=== PATIENT | male | born 1950 | race Caucasian/White ===

== ENCOUNTER 2022-12-02 17:27 | Emergency (ER) | payer MEDICARE, SELFPAY ==
--- NOTE | ~2022-12-02 | CT_ITS ---
Non-contrast Head CT History: Head injury Technique: Axial non-contrast imaging of the brain was performed. Dose reduction technique was used on this scan by utilizing automated exposure control and iterative reconstruction technique. The dose -length product (DLP) was 605.33 mGy-cm. Findings: There is no evidence of intracranial hemorrhage, mass lesion, or acute infarct. Brain par enchyma appears normal. The ventricles and subarachnoid spaces are normal in size. The calvarium ap pears normal. The visualized paranasal sinuses and mastoid air cells are clear. Impression: No significant abnormality seen. Reviewed, dictated and finalized at location . Impression: No significant abnormality seen.
[2022-12-02 17:29] VITALS: BP 166/95; PULSE 81; RESP 14; TEMP 36.1; O2SAT 98
[2022-12-02] MEDS: TETANUS,DIPHTHERIA,AC PERTUSSIS ADULT (0.5 ML) BOOSTRIX IM (17:51)
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
[2022-12-02 19:06] VITALS: BP 140/87; PULSE 72; RESP 17; O2SAT 99
== END 2022-12-02 19:07 | disposition home or self-care (01) ==
PROVIDERS: Emergency Provider Emergency Medicine
DX: S01.03XA Puncture wound without foreign body of scalp, initial encounter (principal); Z23 Encounter for immunization; M10.9 Gout, unspecified; Z85.828 Personal history of other malignant neoplasm of skin; Z96.659 Presence of unspecified artificial knee joint; W20.8XXA Other cause of strike by thrown, projected or falling object, initial encounter; Y93.H2 Activity, gardening and landscaping
CPT/HCPCS: 70450; 90471; 90715; 99284

== ENCOUNTER 2023-10-01 08:49 | Outpatient (CLI) | payer MEDICARE, SELFPAY ==
--- NOTE | ~2023-10-01 | NM_ITS ---
EXAMINATION: NM bone scan whole body DATE: 10/01/2023 13:18 INDICATION: Prostate cancer TECHNIQUE: 24.1 mCi Tc-99m HDP was administered intravenously. Delayed whole-body scintigrams were o btained. COMPARISON: CT abdomen and pelvis dated 10/01/2023 FINDINGS: Typical pattern of mild likely degenerative joint centered uptake at multiple joints at the bilateral hands as well as at the bilateral elbows and acromioclavicular joints. Typical pattern of mild uptak e at the margins of photopenic defects associated with bilateral total knee arthroplasties. No abnorm ally increased periprosthetic activity to suggest loosening or infection. There is increased likely d egenerative disc and facet joint centered uptake at multiple locations in the lumbar, thoracic and ce rvical spine. No other atypical foci of abnormal uptake in the pelvis, ribs or skull to suggest metas tatic disease. IMPRESSION: 1. Typical pattern of scattered degenerative joint and disc centered uptake. No other atypical foci o f bone uptake to suggest metastatic disease. Reviewed, dictated and finalized at location A. IMPRESSION: 1. Typical pattern of scattered degenerative joint and disc centered uptake. No other atypical foci of bone uptake to suggest metastatic disease.
--- NOTE | ~2023-10-01 | CT_ITS ---
CT of the Abdomen and Pelvis: Indication: Prostate cancer Technique: 2.5 mm axial scans were obtained through the abdomen and pelvis following intravenous adm inistration of 100 cc of Omnipaque 350. Dose reduction technique was used on this scan by utilizing a utomated exposure control and iterative reconstruction technique. The dose-length product (DLP) was 1 148.63 mGy-cm. Findings: Scans through the lung bases are unremarkable. The liver, spleen, pancreas, adrenals and kidneys are within normal limits. Multiple calcified gallst ones are present. No evidence of aortic aneurysm. No lymphadenopathy. No bowel obstruction or bowel wall thickening. There is no evidence to suggest acute appendicitis. Images through the pelvis were performed. Urinary bladder unremarkable. Prostate gland mildly enlarge d. No ascites. There is degenerative change in the lumbar spine. No osteoblastic lesion identified. Impression: No evidence for metastatic disease. Cholelithiasis. Reviewed, dictated and finalized at [facility]. Impression: No evidence for metastatic disease. Cholelithiasis.
[2023-10-01 09:36] LABS: Estimated Glomerular Filt Rate > 60
== END 2023-10-01 08:50 | disposition home or self-care (01) ==
PROVIDERS: Visit Provider Urology
DX: C61 Malignant neoplasm of prostate (principal); K80.20 Calculus of gallbladder without cholecystitis without obstruction
CPT/HCPCS: 74177; 78306; A9503; Q9967

== ENCOUNTER 2023-11-24 13:18 | Outpatient (CLI) | payer MEDICARE, SELFPAY ==
--- NOTE | ~2023-11-24 | PE_ITS ---
EXAMINATION: PET_PETPSMAST_PT DATE: 11/24/2023 15:38 INDICATION: Prostate cancer TECHNIQUE: 4.924 mCi of Locametz Ga-68(56-[id number]-mzmhrefyrn) was administered i.v. Low dose computed ely ography (CT) images were acquired from the base of the brain to the base of the brain to the proximal thighs for attenuation correction and anatomic localization. Positron emission tomography (PET) imag es were acquired in the same distribution beginning 86 minutes after injection. Images including fuse d PET/CT images were reconstructed in axial, coronal, and sagittal planes. Automated exposure control technique was employed. The dose-length product was 1262.62mGy-cm. COMPARISON: CT abdomen and pelvis and bone scan, both dated 10/01/2023 FINDINGS: Head/neck: Typical pattern of symmetric physiologic increased activity in the lacrimal, parotid and submandibula r glands as well as along the mucosa of the nasal and oral cavities, pharynx and hypopharynx. No path ologically enlarged cervical lymphadenopathy or suspicious foci of increased uptake in the visualized head or neck. Chest: There is dependent atelectasis in bilateral lower lobes. No suspicious pulmonary nodules, pneumonia o r pleural effusion. Heart size is normal. No pericardial effusion. Thoracic aorta is normal in calibe r. No pathologically enlarged or PSMA avid thoracic lymphadenopathy. Abdomen/pelvis/proximal thighs: Physiologic renal accumulation and excretion of activity in the kidneys, bladder and along portions o f ureters. There is diffuse mild uptake throughout the posterior aspect of the mildly enlarged prosta te with maximal SUV of 7.7. There are couple new metallic densities in the prostate likely related to interval prostate biopsy. Normal degree and slightly heterogenous pattern of increased uptake throug hout the liver and spleen without radiologic correlate or dominant PSMA avid lesion. There are few ca lcified gallstones within the otherwise normal gallbladder. The pancreas and bilateral adrenal glands are normal. Moderate uptake scattered throughout the bowels with typical duodenal and proximal jejun al predominance and without radiologic correlate, also likely physiologic. No other abnormal foci of increased uptake or pathologically enlarged lymphadenopathy in the abdomen, pelvis or proximal thighs . Musculoskeletal: Moderate thoracic and severe cervical and lumbar spondylosis. No suspicious lytic, blastic or abnorma lly PSMA avid bone lesions to suggest osseous metastatic disease. IMPRESSION: 1. Mild diffuse uptake in the posterior prostate consistent with reported primary prostate cancer. No evident metastatic disease. Reviewed, dictated and finalized at location B. IMPRESSION: 1. Mild diffuse uptake in the posterior prostate consistent with reported prima ry prostate cancer. No evident metastatic disease.
== END 2023-11-24 13:19 | disposition home or self-care (01) ==
LOC: ANHIMG 13:24
PROVIDERS: Visit Provider Radiology Radiation Oncology
DX: C61 Malignant neoplasm of prostate (principal)
CPT/HCPCS: 78815; A9596

== ENCOUNTER 2023-12-06 07:29 | Outpatient (CLI) | payer MEDICARE, SELFPAY ==
--- NOTE | ~2023-12-06 | MR_ITS ---
EXAMINATION: MR pelvis wo/w con DATE: 12/06/2023 09:15 INDICATION: Malignant neoplasm of prostate. TECHNIQUE: Magnetic resonance imaging (MRI) of the pelvis was performed without and with 20 mL MultiH ance intravenous contrast. COMPARISON: PET/CT 11/24/2023 FINDINGS: The prostate is mildly enlarged. There are no dilated loops of bowel. There are no pathologically enl arged lymph nodes. There is no free intraperitoneal fluid. There is no osseous metastatic disease. IMPRESSION: 1. Mildly enlarged prostate. No evidence of metastatic disease. Reviewed, dictated and finalized at location E.
== END 2023-12-06 07:30 | disposition home or self-care (01) ==
LOC: ANHIMG 07:36
PROVIDERS: Visit Provider Radiology Radiation Oncology
DX: N40.0 Benign prostatic hyperplasia without lower urinary tract symptoms (principal)
CPT/HCPCS: 72197; A9577

== ENCOUNTER 2025-03-27 02:13 | Day surgery (SDC) | payer MEDICARE, SELFPAY ==
[2025-03-14 15:32] VITALS: BMI 31.3
--- OUTSIDE RECORDS SUMMARY | 2025-03-27 02:16 | XMS_ITS | Clinical Summary ---
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 Gender Identity Not on file Sexual Orientation Not on file Plan of Treatment Health Maintenance Due Date Last Done Comments Hepatitis C Virus (HCV) Screening 1950 TdaP Immunization 1950 Cologuard 1997 Colonoscopy 1997 Colorectal Cancer Screening 1997 Immunochemical Fecal Occult Blood 1997 Pneumococcal Immunization (5 0+ years) (1 of 1 - PCV) 2002 Zoster Immunization (1 of 2) 2002 Influenza Immunization (#1) 2025 SARS-COV-2 Immunization ( season) 2025 Respiratory Syncytial Virus (RSV) Immunization (Adult) (1 - 1-dose 75+ series) 12/06/2027 Hepatitis B Immunization Aged Out No longer eligible based on patient's age to complete this topic Human Papillomavirus (HPV) Immunization Aged Out No longer eligible b ased on patient's age to complete this topic Meningococcal Immunization (ACWY) Aged Out No longer eligible based on patient's age to complete this topic Rotavirus Immunization Aged Out No lo nger eligible based on patient's age to complete this topic
--- OUTSIDE RECORDS SUMMARY | 2025-03-27 02:16 | XMS_ITS | Clinical Summary ---
Author Organization [facility] Address [address] [place] [address] Care Team Providers Care Publication Specialist Name Role Phone Valentina Everett MD Primary Care Provider Allergies No known active allergies Medications aspirin (ECOTRIN EC) 81 mg Tablet, Delayed Release (E.C.) Take 81 mg by mouth daily. Active Cholecalciferol , Vitamin D3, 50 mcg (2,000 unit) Capsule Active DOCOSAHEXAENOIC ACID ORAL Active multivitamin (DAILY-CALVIN) tablet Active omeprazole (PriLOSEC) 20 mg Capsule, Delayed Release(E.C.) Active meloxicam (MOBIC) 15 mg tabletIndicatio ns:Chronic pain syndrome Take 1 Tablet (15 mg) by mouth daily. 100 Tablet 3 5 Active traMADol (ULTRAM) 50 mg tabletIndicatio ns:Chronic pain syndrome Take 1 Tablet (50 mg) by mouth every 6 hours as needed for Pain. 15 Tablet 5 Active allopurinoL (ZYLOPRIM) 300 mg tablet TAKE 1 TABLET BY MOUTH EVERY DAY 90 Tablet 1 5 Active atorvastatin (LIPITOR) 40 mg tablet Take 1 Tablet (40 mg) by mouth daily at bedtime. 100 Tablet 3 5 Active ketoconazole (NIZORAL) 2 % Cream APPLY TO AFFECTED AREA EVERY DAY 60 Gram 5 Active amoxicillin (AMOXIL) 500 mg capsuleIndicati ons:Presence of artificial knee joint, bilateral Take 2,000 mg (4 tablets) 1 hour prior to your dental procedure. 4 Capsule 5 Active ofloxacin (FLOXIN) 0.3 % DropsIndication s:Acute swimmer's ear of both sides Administer 10 Drops in both ears daily. 10 mL 5 Active Active Problems Problem Noted Date Diagnosed Date Declined influenza vaccine 02/29/2024 Prostate cancer 02/29/2024 Carpal tunnel syndrome, left upper limb 07/27/19 23 Cortical age-related cataract of left eye 2020 Encounter for other preprocedural examination Tinea pedis 07/09/2020 Presence of artificial knee joint, bilateral Cough 10/18/2019 Other specified disorders of nose and nasal sinu ses 03/02/2019 Chronic pain syndrome 05/05/2018 Class 2 obesity due to exces s calories without serious comorbidity with body mass index (BMI) of 35.0 to 35.9 in adult 02/14/2018 Body mass index 32.0-32.9, adult 02/18/2017 Gastro-esophageal reflux disease with esophagiti s 02/17/2017 Pain in the shoulder 02/09/2017 Well adult exam 08/16/2015 snf (current) use of opiate analgesic 07/30 Low back pain 08/15/2015 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 Mixed hyperlipidemia 08/15/2015 Chronic gout, unspecified, without tophus (tophi ) 08/15/2015 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 08/15/2015 Other superintendent terminal (current) drug therapy 6 Encounters Date Type Department Care Team Description 03/14/2025 External Device Data [facility] ABSTRACTION Provider, Abstract 02/14/2025 12:30 PM CDT Office Visit [facility] [address] [place] [id number] [place] [address] Roberto Edmonds PA-C Acute swimmer's ear of both sides (Primary Dx) 02/14/2025 External Device Data [facility] ABSTRACTION Provider, Abstract 02/07/2025 Refill [facility] [id number] [place] [address] Roberto Edmonds PA-C Presence of artificial knee joint, bilateral 01/31/2025 External Device Data [facility] ABSTRACTION Provider, Abstract 01/31/2025 External Device Data [facility] ABSTRACTION Provider, Abstract 01/31/[address] [place] [phone] Noel Hoang MD Med Refill; Patient Communication 01/27/2025 Refill [address] [facility] [address] [place] [phone] Shannan Muller, RAIZA 01/22/[address] [place] [phone] Roberto Edmonds PA-C 01/18/2025 External Device Data [facility] ABSTRACTION Provider, Abstract 01/04/2025 External Device Data [facility] ABSTRACTION Provider, Abstract 01/03/2025 External Device Data [facility] ABSTRACTION Provider, Abstract 12/29/[address] [place] [phone] Roberto Edmonds PA-C from Last 3 Months Immunizations Immunization Administration Dates Next Due Influenza Seasonal Unspecifi ed Formulation IM 03/02/2019,02/25/2018,02/18/2017 PNEUMOVAX (PPSV23) pneumococ rachel polysaccharide 23-valent Vaccine 02/25/2018 Family History Medical History Relation Name Comments Heart Attack Father Other Mother lung removal fr om smoking SLE Sister Relation Name Status Comments Father Mother Sister Social History Tobacco Use Types Packs/Day Years Used Date Smoking Tobacco: Never Passive Smoke Exposure: Never Smokeless Tobacco: Never Tobacco Cessation:Counseling Given: No Alcohol Use Standard Drinks/Week Comments Yes 0 (1 standard drink = 0.6 oz pur e alcohol) wine 4-5 times a week Sex and Gender Information Value Date Recorded Sex Assigned at Not on file Legal Sex Male 2:19 PM CDT Gender Identity Not on file Sexual Orientation Not on file Last Filed Vital Signs Vital Sign Reading Time Taken Comments Blood Pressure 106/72 02/14/2025 12:39 PM CDT Pulse 66 02/14/2025 12:39 PM CDT Temperature 36.6 C (97.9 F) 02/14/2025 12:39 PM CDT Respiratory Rate - - Oxygen Saturation 96% 02/14/2025 12:39 PM CDT Inhaled Oxygen Concentration - - Weight 95 kg (209 lb 6.4 oz) 02/14/2025 12:39 PM CDT Height 180.3 cm (5' 11) 02/14/2025 12:39 PM CDT Body Mass Index 29.21 02/14/2025 12:39 PM CDT Plan of Treatment Upcoming Encounters Date Type Department Care Team (Late st Contact Info) Description 07/24/2025 10:00 AM 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 Office Visit [address] [facility] [address] [phone] Valentina Everett MD [address] [place] [phone] Health Maintenance Due Date Last Done Comments FIT/ DNA Q 3 YEARS (AUTO ORDER) 1970 FIT/FOBT Q 1 YEAR (AUTO ORDER) 1970 FLEX SIG/CT COLONOGRAPHY Q 5 YEARS (AUTO ORDER) 1970 DTAP/TDAP/TD VACCINES (1 - Tdap) 12/06/1971 COLORECTAL CANCER SCREENING (AUTO ORDER) 1997 COLORECTAL SCREENING 1997 Colorectal Cancer Screening (AUTO ORDER) 1997 Colorectal Cancer Screening 1997 FIT-DNA Q 3 years 1997 FIT/FOBT Q 1 year 1997 Flex Sig/CT Colonography Q 5 years 1997 ZOSTER VACCINE (1 of 2) 2002 PNEUMOCOCCAL VACCINE 50+ YEA RS (2 of 2 - PCV) 02/25/2019 02/25/2018 Medicare Advantage (OR) Prev entative Visit/Annual Wellness Visit 06/01/2024 02/29/2024 INFLUENZA VACCINE (#1) 2024 9, 02/25/2018, 02/18/2017 RSV VACCINE (60+ or ) (1 - 1-dose 75+ series) 12/06/2027 Insurance [employer] PPO MCR Care Teams Publication Specialist Relationship Specialty Start Date End Date Valentina Everett MD [facility] [phone] PCP - General Family Practice 02/14/25
--- OUTSIDE RECORDS SUMMARY | 2025-03-27 02:16 | XMS_ITS | Encounter Summary ---
Author Organization [facility] Address [address] [place] [address] Care Team Providers Care Terminal Operations Supervisor Name Role Phone Valentina Everett MD Primary Care Provider Encounter Details Date Type Department Care Team (Late st Contact Info) Description 09/03/[address] 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 Care [facility]erm[facility] Lab Received: 09/03/2022 06:08 AM Pathologist: Kaiden Wells MD Specimen: Skin, right lower abd 12:33 PM CDT DERMATOPATHOLOGY LABORATORY Final Diagnosis Specimen A. SKIN, right lower abd: BENIGN VERRUCOUS KERATOSIS, INFLAMED (L82.1) 3 12:33 PM CDT DERMATOPATHOLOGY LABORATORY at 1233 CDT Clinical History SCC vs. Irritated SK. Path# [id number] 12:33 PM CDT DERMATOPATHOLOGY LABORATORY Gross Description Specimen A: Received is one formalin filled container labeled with the patient's name and designated right lower abd. The specimen consists of a shave biopsy measuring 10x8x4 mm. Jar 0. 12:33 PM CDT DERMATOPATHOLOGY LABORATORY Microscopic Description Specimen A. SKIN, right lower abd: Sections show hyperkeratosis, papillomatosis, hypergranulosis, and acanthosis. Inflammatory cells are present within the dermis. These histological findings can be seen in a verruca vulgaris or a seborrheic keratosis. 12:33 PM CDT DERMATOPATHOLOGY LABORATORY Disclaimer An external and internal positive and negative controls are appropriate for the histochemical, immunohistochemical and immunofluorescence stain(s) in this case (if any), except where stated explicitly. The performance characteristics of the stain(s) cited in this report were developed and its performance characteristic determined by the Dermatopathology Laboratory at [facility], directed by Dr. Paul Wells. These tests need not be, and therefore are not, approved by the [place] Food and Drug Administration. The tests are used for clinical purposes. Billing Codes Specimen Charges Stain Charges 20274 1 12:33 PM CDT DERMATOPATHOLOGY LABORATORY Embedded Images 12:33 PM CDT DERMATOPATHOLOGY LABORATORY Pathology/Cytolo gy TISSUE SPECIMEN FROM SKIN / Unknown 09/02/2022 3:33 AM CDT 09/03/2022 6:08 AM CDT us Melquiades Cortez MD LAB - PATHOLOGY/CYTOLOGY ORDER LOKESH Final Result DERMATOPATHOLOGY LABORATORY [facility] - Department of Dermatology [address] [place], [place] [address] [phone] documented in this encounter Visit Diagnoses Not on filedocumented in this encounter Care Teams Terminal Operations Supervisor Relationship Specialty Start Date End Date Valentina Everett MD [address] [place] [phone] PCP - General Family Medicine 02/28/25 documented as of this encounter
--- OUTSIDE RECORDS SUMMARY | 2025-03-27 02:16 | XMS_ITS | Clinical Summary ---
Author Organization [facility] Address [address] [place] [id number] Care Team Providers Care Heel Shaper Name Role Phone Noel Hoang MD Primary Care Provider + Allergies No known active allergies Medications aspirin 81 mg enteric coated tablet Active allopurinoL (ZYLOPRIM) 300 mg tablet 1 Active atorvastatin (LIPITOR) 40 mg tablet 1 Active cholecalciferol (Vitamin D3) 2000 unit capsule Active cyanocobalamin (Vitamin B-12) 500 mcg tablet Activ e multivitamin tablet Active omeprazole (PriLOSEC) 20 mg capsule Active omega 2-ymw-hrz-fish oil (Fish OiL) 100-160-1,000 mg capsule Active meloxicam (MOBIC) 15 mg tablet 3 Active vitamin E acetate (VITAMIN E ORAL) Take by mouth Active ketoconazole (NIZORAL) 2 % cream Apply topically daily 5 Active Active Problems Problem Noted Date Diagnosed Date Low back pain 02/17/2017 Pain in the shoulder 02/09/2017 Surgical History Surgery Date Site/Laterality Comments TOTAL KNEE ARTHROPLASTY 2009 & 2010 Bilateral FL UPPER GI AIR CONTRAST W KUB 01/16/2023 Bilateral Medical History Medical History Date Comments Gout Hypercholesteremia Obesity Family History Medical History Relation Name Comments Arthritis Father Family history of arthritis - (Added by TW Conv) COPD Father Gout Father Heart disease Father Family history of cardiac disorder - (Added by TW Conv) Hypertension Father Family history of hypertension - (Added by TW Conv) Lung disease Father Family history of lung disease - (Added by TW Conv) COPD Mother Cancer Mother Family history of malignant neoplasm - (Added by TW Conv) Hypertension Mother Family history of hypertension - (Added by TW Conv) Lung disease Mother Family history of lung disease - (Added by TW Conv) Arthritis Sister Family history of arthritis - (Added by TW Conv) Relation Name Status Comments Father Mother Sister Social History Tobacco Use Types Packs/Day Years Used Date Smoking Tobacco: Never AUDIT-C Answer Date Recorded Q1: How often do you have a drink containing alcohol? Never 12/31/2022 Q2: How many drinks containi ng alcohol do you have on a typical day when you are drinking? Patient does not drink Q3: How often do you have si x or more drinks on one occasion? Never 12/31/2022 Personal Safety Answer Date Recorded Have you ever been in or are you currently in a harmful physical or emotional relationship or is someone making you feel afraid or unsafe? 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 Gender Identity Not on file Sexual Orientation Not on file Occupation Industry Job Start Date Job End Date retired Not on file Not on file Not on file Obstetrics History Last Filed Vital Signs Vital Sign Reading Time Taken Comments Blood Pressure 141/87 01/16/2023 10:05 AM CDT Pulse 68 01/16/2023 10:05 AM CDT Temperature - - Respiratory Rate 16 01/16/2023 10:05 AM CDT Oxygen Saturation 93% 01/16/2023 10:05 AM CDT Inhaled Oxygen Concentration - - Weight 100.7 kg (222 lb) 12/31/2022 1:17 PM CDT Height 175.3 cm (5' 9) 12/31/2022 1:17 PM CDT Body Mass Index 32.78 12/31/2022 1:17 PM CDT Plan of Treatment Health Maintenance Due Date Last Done Comments Colon Cancer Screening-Colonoscopy 1950 Depression Screening 1950 Hepatitis C Screening 1952 Hepatitis B Screening 1970 Well Visit 65+ 2017 Zoster Vaccine (2 of 2) 04/26/2018 03/01/2018 Pneumococcal vaccine 65+ (2 of 2 - PCV) 02/25/2019 02/25/2018 Fall Risk Assessment 01/17/2024 01/16/2023 Covid-19 Vaccine (6 - 2024-2 6 season) 2025 03/27/2022, 10/10/2021, 03/16/2021, Additional history exists Influenza Vaccine (#1) 2025 , 03/16/2021, 03/14/2020, Additional history exists DTaP/Tdap/Td Vaccine (2 - Td or Tdap) 12/02/2032 12/02/2022 Insurance [facility] MEDICARE UHC MEDICARE ADVANTAGE [facility] MEDICARE Address: [address] [address] [place] [address] [facility] MEDICARE Care Teams Heel Shaper Relationship Specialty Start Date End Date Noel Hoang MD PCP - General 01/26/17
--- OUTSIDE RECORDS SUMMARY | 2025-03-27 02:16 | XMS_ITS | Clinical Summary ---
Author Organization [facility] Address [address] [place] [address] Care Team Providers Care Line Rider Name Role Phone Valentina Everett MD Primary Care Provider Source Comments [facility],non-owned Affiliates and Associated Physician Practices is amultiple site organization consisting of ambulatory clinics and hospital sitesin [place], [place], [place] and [place]. This disclosure is being madepursuant to the Care Everywhere program and may not contain all information available regarding this patient. Last updated 18.[facility] Allergies No known active allergies Medications * Be aware that medications may not be up to date on this document. Alwaysverify current medications with the patient. allopurinol (Zyloprim) 300 MG tablet Take 1 (one) tablet by mouth once daily 5 Active atorvastatin (Lipitor) 40 MG tablet Take 1 (one) tablet by mouth at bedtime 5 Active aspirin EC (Ecotrin) 81 MG tablet Take 1 (one) tablet by mouth once daily Active ketoconazole (Nizoral) 2 % cream Apply to affected area once daily 5 Active vitamin B-12 (Cyanocobalamin ) 500 MCG tablet Take 1 (one) tablet by mouth once daily Active Cholecalciferol 50 MCG (2000 UT) Take 50 mcg by mouth once daily Active meloxicam (Mobic) 15 MG tablet Take 1 (one) tablet by mouth once daily 5 Active Multiple Vitamin (Daily Vites) TABS Take 1 (one) tablet by mouth once daily Active acyclovir (Zovirax) 800 MG tablet Take 1 (one) tablet by mouth as needed Active traMADol (Ultram) 50 MG tablet Take 1 (one) tablet by mouth every 6 hours as needed Active omeprazole (PriLOSEC) 20 MG capsule Take 1 (one) capsule by mouth daily before breakfast Active Active Problems No known active problems Encounters Date Type Department Care Team Description 03/21/2025 12:30 PM CDT - 03/21/2025 11:59 PM CDT Hospital Encounter [facility] MRI [address] [place] [phone] Brayden Cesar APRN-CNP Discharge Disposition: Home or Self Care 03/21/2025 Travel 03/01/2025 Telephone [facility] - Centralized Scheduling [address] [place] [phone] Brayden Cesar APRN-CNP Procedure 02/28/2025 1:00 PM CDT [facility] [address] [place] [phone] Brayden Cesar APRN-CNP Sensorineural hearing loss (SNHL) of both ears (Primary Dx); Asymmetric SNHL (sensorineural hearing loss) 02/28/2025 12:30 PM CDT Testing Visit [facility] [address] [place] [phone] Jeniffer Flowers AuD Sensorineural hearing loss (SNHL) of both ears 02/28/2025 Travel from Last 3 Months Immunizations Immunization Administration Dates Next Due INFLUENZA VACCINE, TRIV. 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 Gender Identity Not on file Sexual Orientation Not on file Travel History Travel Start Travel End [place] 03/17/2025 03/20/2025 Last Filed Vital Signs Vital Sign Reading Time Taken Comments Blood Pressure 129/81 02/28/2025 1:25 PM CDT Pulse 71 02/28/2025 1:25 PM CDT Temperature - - Respiratory Rate - - Oxygen Saturation - - Inhaled Oxygen Concentration - - Weight 94.8 kg (209 lb) 02/28/2025 1:25 PM CDT Height 174 cm (5' 8.5) 02/28/2025 1:25 PM CDT Body Mass Index 31.32 02/28/2025 1:25 PM CDT Plan of Treatment Health Maintenance Due Date Last Done Comments COLOGUARD (AGES 45-75) - COL ON CA SCREENING 1952 COLON MONITORING 1952 COLONOSCOPY - COLON CA SCREENING 1952 CT COLONOGRAPHY - COLON CA SCREENING 1952 Colorectal Cancer Screening 1952 FIT - COLON CA SCREENING 1952 FLEX SIG - COLON CA SCREENING 1952 HEPATITIS C SCREENING 12/01/1970 DTAP/TDAP/TD VACCINES (1 - Tdap) 12/06/1971 ZOSTER VACCINE (1 of 2) 2002 PNEUMOCOCCAL VACCINE 50+ (2 of 2 - PCV) 02/25/2019 02/25/2018 DEPRESSION SCREENING 06/01/2024 MEDICARE AWV CALENDAR YEAR 2024 COVID-19 VACCINE (1 - 2023-2 5 season) 2025 INFLUENZA VACCINE (#1) 2025 9, 02/25/2018, 02/18/2017 Respiratory Syncytial Virus (RSV) Vaccine Pt: or over 60 yrs (1 - 1-dose 75+ series) 12/06/2027 HEPATITIS B VACCINE Aged Out No longe r eligible based on patient's age to complete this topic HIB VACCINE Aged Out No longer eligi ble based on patient's age to complete this topic HPV VACCINE Aged Out No longer eligi ble based on patient's age to complete this topic MENINGOCOCCAL (Group B) VACCINE SHARED DECISION-MAKING Aged Out No longer eligible based on patient's age to complete this topic MENINGOCOCCAL GROUPS A/C/Y/W VACCINE Aged Out No longer eligible b ased on patient's age to complete this topic Procedures Procedure Name Priority Date/Time Associated Diagnosis Comments AUDIOLOGY/TYMPANOME TRY ORDER Routine 02/28/2025 1:02 PM CDT from Last 3 Months Results * AUDIOLOGY/TYMPANOMETRY ORDER (02/28/2025 1:02 PM CDT) Jeniffer Johns AuD - 02/28/2025 1:02 PM CDT History: Allie Fragoso arrived for a hearing evaluation. Patient reports hearing loss, which appears to have worsened due to fluid in his ears. He was treated for an ear infection AU and originally had ear pain LT, which has since subsided. He denies tinnitus and dizziness. There is a history of noise exposure. There is not a family history of hearing loss. There is not a history of surgery on either ear(s). Results: Puretone air/bone conduction testing revealed a normal sloping to moderately severe SN hearing loss in the right ear and a moderately severe rising to moderate SN hearing loss in the left ear. Speech understanding was good in the right ear and good in the left ear. Note, originally left speech understanding was fair at 60%, however testing was repeated with a score of 80% (good speech understanding). Immittance measures revealed a Type B tympanogram in the right ear, indicating abnormal middle ear function. Results for the left ear revealed a Type As tympanogram, indicating shallow middle ear function in that ear. These results were discussed in detail with the patient and all pertinent questions were answered. Recommendations: 1) ENT consult. 2) Re check per medical recommendation, annually, or if a change in hearing is suspected. 3) Hearing protection in noise. 4) Amplification pending interest/medical clearance. Jane Le. [facility]-A Clinical Tools And Parts Attendant [facility]-Department of Otolaryngology/Audiology [facility] [address] [place] [address]. ([facility]) [place] [address] Jeniffer Flowers Jane AUDIOLOGY SERVICES ORDERABLES F inal Result from Last 3 Months Insurance AET[employer] AET[employer] MEDICARE ADV Care Teams Line Rider Relationship Specialty Start Date End Date Valentina Everett MD [address] [place] [phone] PCP - General Family Medicine 02/28/25
--- OUTSIDE RECORDS SUMMARY | 2025-03-27 02:16 | XMS_ITS | Encounter Summary ---
Author Organization [facility] Address [address] [place] [address] Care Team Providers Care Wire Drawing Setter Name Role Phone Valentina Everett MD Primary Care Provider Reason for Visit * Reason Onset Date Comments Procedure 03/01/2025 Encounter Details Date Type Department Care Team (Late st Contact Info) Description 03/01/2025 Telephone [facility] - Centralized Scheduling [address] [place] [phone] Brayden Cesar, PROGRAM FACILITATOR-[facility] [address] [facility] [address] [place] [address] Procedure Social History Tobacco Use Types Packs/Day Years Used Date Smoking Tobacco: Never Smokeless Tobacco: Never Alcohol Use Standard Drinks/Week Comments Not Currently 0 (1 standard drink = 0.6 oz pur e alcohol) Sex and Gender Information Value Date Recorded Sex Assigned at Not on file 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 documented in this encounter Plan of Treatment Not on file documented as of this encounter Visit Diagnoses Not on filedocumented in this encounter Care Teams Wire Drawing Setter Relationship Specialty Start Date End Date Valentina Everett MD [address] [place] [phone] PCP - General Family Medicine 02/28/25 documented as of this encounter
[2025-03-27 06:52] VITALS: BP 111/69; PULSE 69; RESP 18; TEMP 36.1; O2SAT 99
[2025-03-27] MEDS: LACTATED RINGERS 1,000 ML 150 ML IV CONT (07:02)
--- NOTE | 2025-03-27 08:03 | PM.IMHP ---
H&P: HPI History of Present Illness Date/Time: 03/27/25 08:03 Chief Complaint: Screening colonoscopy Narrative: This is the patient's 2nd colonoscopy after 10 years.. There are no GI symptoms and there is no family history of colorectal cancer. Review of Systems Review of Systems: All systems reviewed & are unremarkable except as noted in HPI and below PMFSH Past Medical History Medical History (Updated 03/27/25 @ 08:04 by Nemesio De Guzman MD) Basal cell carcinoma of skin mid back Gout Surgical History Surgical History History of knee replacement 05/13/2010, 05/14/2011 Social History Social History Smoking status: Never smoker Alcohol intake: current Meds Home Medications and Allergies Home Medications ?Medication ?Instructions ?Recorded ?Confirmed ?Type allopurinol 300 mg tablet 300 mg PO DAILY 05/18/19 03/14/25 History atorvastatin 40 mg tablet 40 mg PO QPM 05/18/19 03/14/25 History cholecalciferol (vitamin D3) 125 125 mcg PO DAILY 05/18/19 03/14/25 History mcg (5,000 unit) capsule (Dialyvite Vitamin D) multivitamin 1 tablet PO DAILY 05/18/19 03/14/25 History omeprazole 20 mg capsule,delayed 20 mg PO DAILY PRN GERD 05/18/19 03/14/25 History release sodium sul 1.479 gram-potas ch See Rx Instructions PO PER PKG DIR 10/11/24 03/14/25 Rx 0.188 gram-magnes sul 0.225 gram #24 tabs tablet (Sutab) meloxicam 15 mg tablet 15 mg PO DAILY 03/14/25 03/14/25 History Allergies Allergy/AdvReac Type Severity Reaction Status Date / Time No Known Allergies Allergy Verified 03/27/25 06:48 Vital Signs Vital Signs - 24 hr 03/27/25 06:52 Temperature 97 F L Pulse Rate 69 Respiratory Rate 18 Blood Pressure 111/69 Pulse Oximetry 99 Oxygen Delivery Room Air Exam Const: General: cooperative and healthy appearing Resp: Effort & Inspection: normal respiratory effort and able to speak in complete sentences Auscultation: clear to auscultation bilaterally Cardio: Rate: regular rate Rhythm: regular rhythm GI: Inspection: normal to inspection GI Palp: No No hepatosplenomegaly present Auscultation: normal bowel sounds Rectal Exam: deferred Skin: General skin exam: normal color Psych: Appearance: grossly normal Mental Status: mental status grossly normal Assessment and Plan Assessment and plan (1) Encounter for screening colonoscopy: Code(s): Z12.11 - Encounter for screening for malignant neoplasm of colon Status: Acute Assessment and Plan: The patient is deemed a good candidate for the procedure. Consent signed. Will proceed.
--- NOTE | 2025-03-27 08:15 | P.PNAN_ITS ---
Anes - Initial Pre Proc Eval Procedure: Operation Date: 03/27/25 08:00 Proposed Procedures p Screening Colonoscopy - Nemesio De Guzman MD Date/Time: 03/27/25 08:15 Surgeon: Nemesio De Guzman MD Pre Op Diagnosis: Screening Patient Data Age: 74 Gender: M Height: 1.73 m Weight: 92 kg Last Vital Signs Temp 36.1 C L 03/27/25 06:52 Pulse 69 03/27/25 06:52 Resp 18 03/27/25 06:52 BP 111/69 03/27/25 06:52 Pulse Ox 99 03/27/25 06:52 O2 Del Method Room Air 03/27/25 06:52 Allergies Allergy/AdvReac Type Severity Reaction Status Date / Time No Known Allergies Allergy Verified 03/27/25 06:48 Home Medications ?Medication ?Instructions ?Recorded ?Confirmed ?Type allopurinol 300 mg tablet 300 mg PO DAILY 05/18/19 History atorvastatin 40 mg tablet 40 mg PO QPM 05/18/19 History cholecalciferol (vitamin D3) 125 125 mcg PO DAILY 05/0103/14/25 History mcg (5,000 unit) capsule (Dialyvite Vitamin D) multivitamin 1 tablet PO DAILY 05/18/19 1 History omeprazole 20 mg capsule,delayed 20 mg PO DAILY PRN GE RD 05/18/19 03/14/25 History release sodium sul 1.479 gram-potas ch See Rx Instructions PO PER PKG DIR 10/11/24 03/14/25 Rx 0.188 gram-magnes sul 0.225 gram #24 tabs tablet (Sutab) meloxicam 15 mg tablet 15 mg PO DAILY 03/14/2503/01 History Patient hx anesthesia problems: none Family hx anesthesia problems: none Results Review: All pre-operative results and documents have been reviewed as part of the pre- operative evaluation. [facility] Past Medical History Medical History (Updated 03/27/25 @ 08:16 by Pepper Beltran CRNA) GERD (gastroesophageal reflux disease) Hyperlipidemia Prostate cancer Obesity Basal cell carcinoma of skin mid back Gout Surgical History Surgical History (Reviewed 05/31/19 @ 09:32 by Sharonda Ardon [facility] [address]) History of knee replacement 05/13/2010, 05/14/2011 Social History Social History Smoking status: Never smoker Alcohol intake: current Anes - Eval Final PreProcedure Day of Procedure 03/27/25 08:15 Patient weight: obese Heart: regular rate and rhythm Lungs: clear to auscultation and normal air movement Airway: Mallampati scale class III Neurological: alert and oriented Last oral intake: >/= 8 hours ASA classification: III Emergent: no Anesthetic plan: proceed Anesthesia type and monitoring: general GIVS and standard monitoring Results Review: All pre-operative results and documents have been reviewed as part of the pre- operative evaluation. Informed Consent: The patient's anesthetic plan and its attendant risks and benefits were discussed with the patient/family/POA. Questions were solicited and answers provided to the satisfaction of the patient/family/POA.
[2025-03-27 08:39] VITALS: BP 111/67; PULSE 63; RESP 23; O2SAT 96
[2025-03-27 08:49] VITALS: BP 116/66; PULSE 68; RESP 17; O2SAT 100
[2025-03-27 08:59] VITALS: BP 132/82; PULSE 65; RESP 17; O2SAT 100
== END 2025-03-27 09:08 | disposition home or self-care (01) ==
PROVIDERS: PCP Family Medicine; Visit Provider Internal Medicine Gastroenterology
PROC: 0DJD8ZZ Inspection of Lower Intestinal Tract, Via Natural or Artificial Opening Endoscopic (ICD-10-PCS; CPT 45378; principal; 2025-03-27 08:00)
DX: Z12.11 Encounter for screening for malignant neoplasm of colon (principal); K57.30 Diverticulosis of large intestine without perforation or abscess without bleeding; Q27.33 Arteriovenous malformation of digestive system vessel; E78.5 Hyperlipidemia, unspecified; K21.9 Gastro-esophageal reflux disease without esophagitis; M10.9 Gout, unspecified; E66.9 Obesity, unspecified; Z68.30 Body mass index [BMI] 30.0-30.9, adult; Z98.890 Other specified postprocedural states; Z85.828 Personal history of other malignant neoplasm of skin; Z85.46 Personal history of malignant neoplasm of prostate
CPT/HCPCS: G0105; J2704; J7120